=== PATIENT | male | born 1975 | race Two or more races ===

== ENCOUNTER 2023-01-31 15:10 | Emergency (ER) | payer MEDICAID, OTHER ==
[2023-01-31 15:25] VITALS: BP 123/90; PULSE 96
[2023-01-31] MEDS: Tetracaine HCl/PF 0.5% 4 ML Bottle EYELF ONE (15:38)
[2023-01-31] MEDS: Ciprofloxacin 0.3% Ophth Soln 5 ML Bottle EYELF SCH (16:11)
== END 2023-01-31 16:30 | disposition home or self-care (01) ==
LOC: KA.ED 15:10
DX: S05.02XA Injury of conjunctiva and corneal abrasion without foreign body, left eye, initial encounter (principal); I10 Essential (primary) hypertension; K21.9 Gastro-esophageal reflux disease without esophagitis; Z79.899 Other long term (current) drug therapy; W44.8XXA Other foreign body entering into or through a natural orifice, initial encounter
CPT/HCPCS: 65220; 70030; 99283; A9270; J3490